=== PATIENT | female | born 1970 | race Hispanic/Latino ===

== ENCOUNTER 2021-05-07 13:43 | Observation (INO) | payer OTHER, SELFPAY ==
[2021-05-07 15:33] LABS: #Eosinphils 0.1 10x3/uL (0.0-0.5); #Monocytes 0.5 10x3/uL (0.0-1.1); #Neutrophils 5.6 10x3/uL (1.5-8.4); %Basophils 0.3 % (0.0-2.0); %Eosinophils 0.9 % (0.0-6.0); %Lymphocytes 35.2 % (18.0-47.0); %Monocytes 5.6 % (0.0-10.0); %Neutrophils 57.7 % (40.0-75.0); Hemoglobin 14.8 g/dL (12.0-15.5); Mean Corpuscular HGB CONC 34.3 g/dL (32.0-36.0); Mean Corpuscular Hemoglobin 30.2 pg (27.0-33.0); Mean Corpuscular Volume 88.2 fl (81.6-98.3); Mean Platelet Volume 9.4 fl (7.4-10.4); Platelet Count 365 10x3/uL (150-450); RBC Distribution Width 13.8 % (11.5-14.5); White Blood Cell (WBC) Count 9.7 10x3/uL (3.5-10.5)
[2021-05-07 15:36] LABS: ALT (SGPT) 16 U/L (8-55); AST (SGOT) 26 U/L (5-34); Albumin 4.5 g/dL (3.5-5.0); Alkaline Phosphatase 48 U/L (40-110); Anion Gap 13 mmol/L (10-20); BUN (Urea Nitrogen) 12 mg/dL (9.8-20.1); Bilirubin, Total 0.4 mg/dL (0.2-1.2); Calc. Creatinine Clearance 0 mL/min (70-130); Calcium 9.8 mg/dL (7.8-10.44); Carbon Dioxide 26 mmol/L (22-29); Chloride 99 mmol/L (98-107); Globulin 3.1 g/dL (2.4-3.5); Glucose 111 mg/dL (70-105); Potassium 3.3 mmol/L (3.5-5.1); Protein, Total 7.6 g/dL (6.0-8.3); Sodium 135 mmol/L (136-145)
[2021-05-07] MEDS ORDERED: Potassium Chloride 20 MEQ TAB ONE (17:21)
[2021-05-07 18:26] LABS: Troponin I Less than 0.010 ng/mL (< 0.028)
[2021-05-07] MEDS ORDERED: Dextrose 5% in Water 1,000 ML IV PRN (19:37)
[2021-05-07] MEDS ORDERED: Senokot S 8.6-50 MG TAB PO PRN (19:37)
[2021-05-07] MEDS ORDERED: Acetaminophen 325 MG TAB PO PRN (19:37)
[2021-05-07] MEDS ORDERED: Dextrose 50% Abboject 50 ML SYRINGE SLOW IVP PRN (19:37)
[2021-05-07] MEDS ORDERED: Calcium Carbonate 500 MG ChewTAB PO PRN (19:37)
[2021-05-07] MEDS ORDERED: Ondansetron PF 4 MG/2 ML Vial IVP PRN (19:37)
[2021-05-07] MEDS ORDERED: HumaLOG 300 UNITS/3 ML VIAL SC PRN (19:37)
[2021-05-07] MEDS ORDERED: Guaifenesin DM 100-10/5 ML UDCUP PO PRN (19:37)
[2021-05-07] MEDS ORDERED: Nitroglycerin 0.4 MG TAB (25 Tab Bottle) SL PRN (19:47)
[2021-05-07] MEDS ORDERED: traZODone HCl 50 MG TAB PO PRN (19:48)
[2021-05-07] MEDS ORDERED: Atorvastatin Calcium 40 MG TAB PO SCH (23:00)
[2021-05-07] MEDS ORDERED: Sodium Chloride 0.9% 1,000 ML IV SCH (23:00)
[2021-05-07] MEDS ORDERED: Potassium Chloride 20 MEQ TAB PO SCH (23:00)
[2021-05-07] MEDS ORDERED: Ketorolac Tromethamine 30 MG/ML VIAL IVP SCH (23:00)
[2021-05-07] MEDS ORDERED: Metoclopramide HCl 10 MG/2 ML VIAL IVP SCH (23:00)
[2021-05-07] MEDS ORDERED: diphenhydrAMINE 50 MG/ML VIAL IVP SCH (23:00)
[2021-05-07] MEDS ORDERED: Gabapentin 100 MG CAP PO SCH (23:00)
[2021-05-08 04:53] VITALS: BMI 26.7
[2021-05-08 04:56] LABS: Anion Gap 11 mmol/L (10-20); BUN (Urea Nitrogen) 12 mg/dL (9.8-20.1); Calc. Creatinine Clearance 92 mL/min (70-130); Calcium 8.2 mg/dL (7.8-10.44); Carbon Dioxide 22 mmol/L (22-29); Cardiac Risk 4.6 (Less than 4.5); Chloride 109 mmol/L (98-107); Cholesterol 124 mg/dl (< 200 Desired); Glucose 77 mg/dL (70-105); HDL Cholesterol 27 mg/dL (>60 Neg Risk); LDL Cholesterol, Calculated 57 mg/dL; Magnesium 1.9 mg/dL (1.6-2.6); Potassium 3.1 mmol/L (3.5-5.1); Sodium 139 mmol/L (136-145); Triglycerides 199 mg/dL (Less than 150)
[2021-05-08] MEDS ORDERED: FLU VACC QS2021-22(6MOS UP)/PF 60 MCG/0.5 ML SYRINGE IM ONE (05:30)
[2021-05-08] MEDS ORDERED: Budesonide 0.5 MG/2 ML NEB NEB SCH (06:30)
[2021-05-08] MEDS ORDERED: Topiramate 25 MG TAB PO SCH (09:00)
[2021-05-08] MEDS ORDERED: Clopidogrel Bisulfate 75 MG TAB PO SCH (09:00)
[2021-05-08] MEDS ORDERED: Potassium Chloride 20 MEQ TAB PO SCH (09:00)
[2021-05-08] MEDS ORDERED: FLUoxetine HCl 10 MG CAP PO SCH (09:00)
[2021-05-08] MEDS ORDERED: Enoxaparin Sodium 40 MG/0.4 ML SYRINGE SC SCH (09:00)
[2021-05-08] MEDS ORDERED: Lantus 1000 UNITS/10 ML VIAL SC SCH (09:00)
[2021-05-08] MEDS ORDERED: Fenofibrate Nanocrystallized 145 MG TAB PO SCH (09:00)
[2021-05-08] MEDS: Gabapentin 100 MG CAP PO SCH ×2 (09:58→15:39)
[2021-05-08] MEDS: HYDROcodone/Acetaminophen 5/325 mg Tablet PO PRN ×2 (09:59→15:38)
[2021-05-08 14:44] LABS: Hemoglobin A1c 6.5 % (4.0-6.0)
[2021-05-08 16:19] VITALS: BP 101/60; TEMP 97.1
[2021-05-08] MEDS ORDERED: Atorvastatin Calcium 40 MG TAB PO SCH (21:00)
== END 2021-05-08 18:05 | disposition home or self-care (01) ==
LOC: CSHERS 13:43 → CSHTELE 22:14
PROVIDERS: ADMIT Student in an Organized Health Care Education/Training Program; ATTEND Internal Medicine
DX: R07.9 Chest pain, unspecified (principal); R42 Dizziness and giddiness; R20.0 Anesthesia of skin; E87.6 Hypokalemia; I10 Essential (primary) hypertension; E78.5 Hyperlipidemia, unspecified; E11.9 Type 2 diabetes mellitus without complications; Z79.899 Other long term (current) drug therapy; Z79.4 Long term (current) use of insulin; F17.210 Nicotine dependence, cigarettes, uncomplicated; Z79.02 Long term (current) use of antithrombotics/antiplatelets; I25.2 Old myocardial infarction; E11.40 Type 2 diabetes mellitus with diabetic neuropathy, unspecified; Z86.73 Personal history of transient ischemic attack (TIA), and cerebral infarction without residual deficits; F41.8 Other specified anxiety disorders; J44.9 Chronic obstructive pulmonary disease, unspecified; G43.909 Migraine, unspecified, not intractable, without status migrainosus
CPT/HCPCS: 36415; 36416; 70551; 71045; 80048; 80053; 80061; 83036; 83735; 83880; 84484; 85025; 93005; 93010; 93306; 94760; 96372; 96374; 96375; G0378; J1200; J1650; J1815; J1885; J2765; J7050